=== PATIENT | female | born 1970 | race Caucasian/White ===

== ENCOUNTER 2017-11-24 08:31 | Day surgery (SDC) | payer BC | END 2017-12-22 22:56 | disposition home or self-care (01) | LOC: MOI MAM 08:31 | PROC: 0HBT3ZX Excision of Right Breast, Percutaneous Approach, Diagnostic (ICD-10-PCS; principal; 2017-11-24) | DX: D24.1 Benign neoplasm of right breast (principal); N60.21 Fibroadenosis of right breast | CPT/HCPCS: 19083; 77065; 88305; A4648; G0279 ==

== ENCOUNTER 2021-11-26 08:21 | Day surgery (SDC) | payer BC ==
[~2021-11-26] VITALS: Ht 167.6 cm; Wt 78.1 kg
[~2021-11-26 08:21] MED LIST: ACET325; GABA300 PO; IBUP800 PO; LEVSOD25 PO; VITAMIN D310 MC4; Vitamin C100 M1
== END 2021-11-26 11:29 | disposition home or self-care (01) ==
LOC: ORSCSDS 08:21
PROVIDERS: Internal Medicine Gastroenterology
PROC: 0DBP8ZX Excision of Rectum, Via Natural or Artificial Opening Endoscopic, Diagnostic (ICD-10-PCS; principal; 2021-11-26 09:30)
DX: Z12.11 Encounter for screening for malignant neoplasm of colon (principal); D12.8 Benign neoplasm of rectum; Z87.891 Personal history of nicotine dependence; E03.9 Hypothyroidism, unspecified; Z79.899 Other long term (current) drug therapy
CPT/HCPCS: 88305; J2250; J2704; J7120

== ENCOUNTER 2025-01-28 07:56 | Day surgery (SDC) | payer BC ==
[2025-01-28] VITALS (16 sets, daily range): BP systolic 93–114; BP diastolic 49–74
[~2025-01-28] VITALS: Ht 167.6 cm; Wt 82.4 kg
[~2025-01-28 07:56] MED LIST changes: +ESTRADIOL0.5 MG PO; +MELO7.5 PO; +Methocarbamol500 MG PO
[2025-01-28] MEDS ORDERED: CeFAZolin Sodium 2,000 MG in NS 100 ML IV SCH ×2 (08:50→20:00)
[2025-01-28] MEDS ORDERED: Chlorhexidine Mouth Care 15 ML UDC MT SCH (08:50)
[2025-01-28] MEDS ORDERED: Ropivacaine 0.5% HCl/Pf 123.125 MG,EPINEPHrine HCL 0.25 MG,Ketorolac Tromethamine 15 MG... INFIL SCH (08:50)
[2025-01-28] MEDS ORDERED: Tranexamic Acid 100 ML IV SCH (08:54)
[2025-01-28] MEDS ORDERED: Metoclopramide HCl 5MG / ML 2ML Vial IV PRN (10:05)
[2025-01-28] MEDS ORDERED: HYDROmorphone HCl/Pf 1MG SYR IV PRN ×3 (10:10→13:50)
[2025-01-28] MEDS ORDERED: Magnesium Hydroxide Conc 10 ML UDC PO PRN (10:10)
[2025-01-28] MEDS ORDERED: Ondansetron HCl 2 MG / ML 2ML Vial IV PRN ×2 (10:10→13:50)
--- NOTE | 2025-01-28 10:30 | NUR ---
PT TO Day Surgery VIA WC. ABLE TO STAND FOR ACCURATE HEIGHT/WEIGHT. History, Chart, Medications and Allergies reviewed before start of procedure. Lungs clear T/O to Auscultation. Patient confirms NPO status and agrees with scheduled surgery. Pre-Op teaching done. Pt verbalizes understanding. Patient States Post-Procedure ride home has been arranged. [facility] 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 PT ALSO HAS PERMANENT BRACELET TO RIGHT WRIST THAT CANNOT BE REMOVED. OR TEAM NOTIFIED, JEWELRY TAPED AND JEWELRY WAIVER SIGNED.
[2025-01-28] MEDS ORDERED: Midazolam HCl 1MG / ML 2ML Vial ONE ×2 (11:20→13:09)
[2025-01-28] MEDS ORDERED: FentaNYL Citrate 50 MCG/ML 2 ML Injection ONE (11:20)
[2025-01-28] MEDS ORDERED: Ketorolac Tromethamine 30mg Vial ONE (11:21)
[2025-01-28] MEDS ORDERED: Dexamethasone Sod Phos 10 MG/ML 1ML VIAL ONE (13:18)
[2025-01-28] MEDS ORDERED: Ondansetron HCl 2 MG / ML 2ML Vial ONE (13:18)
[2025-01-28] MEDS ORDERED: ePHEDrine Sulfate 50 MG/ML 1ML Injection ONE (13:27)
[2025-01-28] MEDS ORDERED: FentaNYL Citrate 50 MCG/ML 2 ML Injection IV PRN ×2 (13:45)
--- NOTE | 2025-01-28 15:51 | NUR ---
ARRIVAL TO UNIT S/P L TKA W/ SPINAL. PATIENT W/ MINIMAL SENSATION, UNABLE TO WIGGLE TOES OR BLE. CAP REFILL <3 SECONDS. PPP. PATIENT ALERT AND ORIENTED X4. COMMUNICATING NEEDS EFFECTIVELY. VSS. DENIES PAIN. PRINEO AND TEGADERM DX W/ SHAINA WRAP C/D/I, NO SHADOWING NOTED. DENIES N/V - SMALL SNACKS AND WATER WITHIN REACH. IVF INFUSING PER EMAR W/ TXA. X1 STRAIGHT CATH IN PACU PRIOR TO TRANSFER. CALL LIGHT IN REACH. FAMILY AT BEDSIDE.
--- NOTE | 2025-01-28 17:42 | NUR ---
SHIFT SUMMARY NO ACUTE CHANGES SINCE ARRIVAL TO UNIT. PATIENT REMAINS ALERT AND ORIENTED X4. COMMUNICATING NEEDS EFFECTIVELY. S/P L TKA W/ SPINAL. INCREASED SENSATION SINCE PREVIOUS DOCUMENTATION, ABLE TO WIGGLE TOES/MOVE FEET. CAP REFILL <3 SECONDS. PPP. DENIES PAIN. VSS. DRESSING C/D/I, NO SHADOWING NOTED ON SHAINA WRAP. POLAR PACK IN PLACE. TOLERATING PO INTAKE. HAS YET TO AMBULATE OOB DUE TO SPINAL RECOVERY. AWAITING SPONTANEOUS POST OP VOID - X1 STRAIGHT CATH IN PACU PRIOR TO TRANSFER. CALL LIGHT IN REACH.
[2025-01-28] MEDS ORDERED: Ketorolac Tromethamine 15mg Vial IV SCH (18:00)
[2025-01-29 04:37] VITALS: BP 95/54
[2025-01-29 05:06] LABS: BASOPHILS ABSOLUTE AUTO 0.03 K/mm3 (0.00-0.23); BASOPHILS PERCENT AUTO 0 % (0-2); EOSINOPHILS ABSOLUTE AUTO 0.01 K/mm3 (0.00-0.68); EOSINOPHILS PERCENT AUTO 0 % (0-6); Hematocrit 35.9 % (33.0-51.0); Hemoglobin 11.6 g/dL (11.5-16.0); IMMATURE GRAN ABSOLUTE AUTO 0.04 K/mm3 (0.00-0.10); IMMATURE GRAN PERCENT AUTO 0 % (0-1); LYMPHOCYTES ABSOLUTE AUTO 1.00 K/mm3 (0.84-5.20); LYMPHOCYTES PERCENT AUTO 8 % (21-46); MONOCYTES ABSOLUTE AUTO 0.77 K/mm3 (0.16-1.47); MONOCYTES PERCENT AUTO 7 % (4-13); Mean Corpuscular HGB Conc 32.3 g/dL (31.5-36.5); Mean Corpuscular Volume 94 fL (80-100); NEUTROPHILS ABSOLUTE AUTO 10.07 K/mm3 (1.96-9.15); NEUTROPHILS PERCENT AUTO 84 % (41-73); NRBC ABSOLUTE 0.00 K/mm3 (0.00-0.02); NRBC Auto 0.0 /100 WBC (0.0-0.2); Platelet Count 294 K/mm3 (150-400); RDW Coefficient Variation 12.8 % (11.7-14.2); RDW Standard Deviation 44.1 fL (35.1-46.3)
[2025-01-29 05:35] LABS: Anion Gap 5.0 mmol/L (3-11); Blood Urea Nitrogen 11.0 mg/dL (8-24); CO2, Blood 29.0 mmol/L (21-32); Calcium, Blood 8.8 mg/dL (8.5-10.1); Chloride, Blood 108.0 mmol/L (98-108); Creatinine, Blood 0.79 mg/dL (0.40-1.00); Glucose, Blood 120.0 mg/dL (70-99); Potassium, Blood 4.2 mmol/L (3.5-5.5); Sodium, Blood 138.0 mmol/L (136-145)
--- NOTE | 2025-01-29 06:50 | NUR ---
SHIFT SUMMARY NOC. PT POD 1 FOR LEFT TOTAL KNEE. PT'S DRESSING IS C/D/I WITH POLAR PACK IN PLACE. PT'S BPS HAVE BEEN SOFT BUT MAP OVER 65. PT AMBULATING WITH SBA, FWW, AND GAIT BELT. PT MEDICATED FOR PAIN WITH OXY AND TYLENOL. MAKES NEED KNOWN AND CALL LIGHT IN REACH.
[2025-01-29 07:12] VITALS: BP 92/60
[2025-01-29] MEDS ORDERED: ELIQUIS2.5 MG PO (08:06)
--- NOTE | 2025-01-29 11:19 | NUR ---
DISCHARGE: PT CLEARED BY THERAPY. WALKING, VOIDING AND PAIN MANAGED. IV DC'D BY JOLLY ESPINOZA. PT RECEIVED DC EDUCATION. VERBALIZED UNDERSTANDING. PT LEFT UNIT VIA WHEELCHAIR WITH THIS RN AND AT ABOUT 11
== END 2025-01-29 10:59 | disposition home or self-care (01) ==
LOC: ORSCMMR 07:56 → ORD 09:15 → ORSCMMR 09:15 → SURS 15:13 → ORSCMMR 01-29 10:59
PROVIDERS: Orthopaedic Surgery
PROC: 0SRD0JA Replacement of Left Knee Joint with Synthetic Substitute, Uncemented, Open Approach (ICD-10-PCS; principal; 2025-01-28 10:00)
DX: M17.12 Unilateral primary osteoarthritis, left knee (principal); S82.122A Displaced fracture of lateral condyle of left tibia, initial encounter for closed fracture; M22.42 Chondromalacia patellae, left knee; G62.9 Polyneuropathy, unspecified; Z79.899 Other long term (current) drug therapy
CPT/HCPCS: 36415; 73560-LT; 80048; 85025; 97110; 97116; 97162; A9270; C1713; C1776; J0165; J0166; J0690; J0735; J1100; J1885; J2250; J2405; J2704; J2795; J3010; J7120